=== PATIENT | female | born 1955 | race Caucasian/White ===

== ENCOUNTER 2018-02-11 11:23 | Emergency (ER) | payer OTHER ==
[~2018-02-11] VITALS: Ht 167.6 cm; Wt 90.0 kg
[~2018-02-11 11:23] MED LIST: ASPI-1 PO; MAGN400C PO; METO-395 PO; PER10325T PO; SERT50TA PO; TRIA1CAP6 PO
[2018-02-11 11:35] VITALS: BP 131/72
[2018-02-11 12:12] LABS: BASOPHILS % (AUTO) 0.3 % (0-1); EOSINOPHILS # (AUTO) 0.1 X10'3 (0-0.9); EOSINOPHILS % (AUTO) 1.9 % (0-6); HEMATOCRIT 40.4 % (35.0-45.0); HEMOGLOBIN 13.5 g/dl (12.0-16.0); LYMPHOCYTES # (AUTO) 1.6 X10'3 (1.1-4.8); LYMPHOCYTES % (AUTO) 26.6 % (21-51); MEAN CORPUSCULAR HEMOGLOBIN 29.7 PG (27.0-31.0); MEAN CORPUSCULAR HGB CONC 33.5 % (33.0-36.5); MEAN CORPUSCULAR VOLUME 88.6 FL (78-98); MEAN PLATELET VOLUME 8.7 FL (7.4-10.4); MONOCYTES # (AUTO) 0.4 X10'3 (0-0.9); NEUTROPHILS % (AUTO) 64.2 % (42-75); PLATELET COUNT 236 X10'3 (140-440); RED BLOOD COUNT 4.56 X10'6 (4.20-5.60); RED CELL DISTRIBUTION WIDTH 13.5 % (11.5-14.5); WHITE BLOOD COUNT 6.2 X10'3 (4.5-11.0)
[2018-02-11 12:19] LABS: CLARITY,URINE CLEAR (Clear); COLOR,URINE YELLOW (Yellow); GLUCOSE, URINE NEGATIVE (Neg); KETONES,URINE NEGATIVE (Neg); LEUKOCYTE ESTERASE ,URINE TRACE (Neg); NITRITES, URINE NEGATIVE (Neg); OCCULT BLOOD,URINE NEGATIVE (Neg); PROTEIN,URINE NEGATIVE (Neg); UROBILINOGEN,URINE 0.2 E.U/dL (0.2-1.0)
[2018-02-11 12:22] LABS: PROTHROMBIN TIME 9.9 SECONDS (9.0-12.0)
[2018-02-11 12:25] LABS: ALANINE AMINOTRANSFERASE 24 U/L (12-78); ALBUMIN 3.6 G/DL (3.4-5.0); ALBUMIN/GLOBULIN RATIO 1.1 (1.1-1.5); ALKALINE PHOSPHATASE 51 IU/L (46-116); ANION GAP 7 (8-16); ASPARTATE AMINO TRANSFERASE 20 U/L (10-37); BILIRUBIN,TOTAL 0.5 MG/DL (0.1-1.0); BLOOD UREA NITROGEN 16 MG/DL (7-18); BUN/CREATININE RATIO 16.5 (6.6-38.0); CALCIUM 9.2 MG/DL (8.5-10.1); CHLORIDE 103 MMOL/L (99-107); CREATININE 0.97 MG/DL (0.40-0.90); GLUCOSE 90 MG/DL (70-104); LIPASE 153 U/L (73-393); POTASSIUM 4.5 MMOL/L (3.5-5.1); SODIUM 141 MMOL/L (135-145); TOTAL CARBON DIOXIDE 30.8 MMOL/L (24-32); TOTAL PROTEIN 6.8 G/DL (6.4-8.2); eGFR 58 ML/MIN
[2018-02-11 12:35] LABS: UA COLLECTION TYPE CLN CATCH MIDSTREAM
[2018-02-11 12:37] LABS: BACTERIA,URINE NONE SEEN /HPF (Neg); SQUAMOUS EPITHELIAL CELL,UR FEW /LPF (FEW); WBC,URINE 0-4 /HPF (0-4)
[2018-02-11 12:38] LABS: RBC,URINE 0-2 /HPF (0-2)
[2018-02-11] MEDS ORDERED: iohexol 300mg/ml 100ml inj. ONE (13:30)
[2018-02-11] MEDS ORDERED: ibuprofen 200mg tablet PO ONE (14:15)
[2018-02-11] MEDS ORDERED: ibuprofen tablet 400 MG TABLET PO ONE (14:15)
== END 2018-02-11 14:28 | disposition home or self-care (01) ==
LOC: ER 11:24
DX: R10.9 Unspecified abdominal pain (principal); K57.30 Diverticulosis of large intestine without perforation or abscess without bleeding; N20.0 Calculus of kidney; I10 Essential (primary) hypertension; Z98.890 Other specified postprocedural states; Z72.0 Tobacco use; Z79.82 Long term (current) use of aspirin; Z79.899 Other long term (current) drug therapy
CPT/HCPCS: 36415; 74176; 80053; 81001; 83690; 85025; 85610; 87088; 99284; Q9967

== ENCOUNTER 2018-07-08 13:20 | Emergency (ER) | payer OTHER ==
[~2018-07-08] VITALS: Ht 167.6 cm; Wt 90.7 kg
[2018-07-08 16:16] LABS: BASOPHILS % (AUTO) 0.5 % (0-1); EOSINOPHILS # (AUTO) 0.1 X10'3 (0-0.9); EOSINOPHILS % (AUTO) 1.2 % (0-6); HEMATOCRIT 40.6 % (35.0-45.0); HEMOGLOBIN 13.8 g/dl (12.0-16.0); LYMPHOCYTES # (AUTO) 1.7 X10'3 (1.1-4.8); MEAN CORPUSCULAR HEMOGLOBIN 29.9 PG (27.0-31.0); MEAN CORPUSCULAR HGB CONC 33.9 g/dL (33.0-36.5); MEAN CORPUSCULAR VOLUME 88.2 FL (78-98); MEAN PLATELET VOLUME 8.6 FL (7.4-10.4); MONOCYTES # (AUTO) 0.5 X10'3 (0-0.9); MONOCYTES % (AUTO) 6.7 % (2-12); NEUTROPHILS # (AUTO) 4.5 X10'3 (1.8-7.7); NEUTROPHILS % (AUTO) 66.6 % (42-75); PLATELET COUNT 210 X10'3 (140-440); RED CELL DISTRIBUTION WIDTH 13.7 % (11.5-14.5); WHITE BLOOD COUNT 6.7 X10'3 (4.5-11.0)
[2018-07-08 16:32] LABS: ALANINE AMINOTRANSFERASE 27 U/L (12-78); ALBUMIN 3.7 G/DL (3.4-5.0); ALBUMIN/GLOBULIN RATIO 1.2 (1.1-1.5); ALKALINE PHOSPHATASE 66 IU/L (46-116); ANION GAP 7 (8-16); ASPARTATE AMINO TRANSFERASE 18 U/L (10-37); BILIRUBIN,TOTAL 0.3 MG/DL (0.1-1.0); BLOOD UREA NITROGEN 15 MG/DL (7-18); BUN/CREATININE RATIO 13.6 (6.6-38.0); CHLORIDE 105 MMOL/L (99-107); GLUCOSE 123 MG/DL (70-104); POTASSIUM 4.3 MMOL/L (3.5-5.1); SODIUM 140 MMOL/L (135-145); TOTAL CARBON DIOXIDE 28.2 MMOL/L (24-32); TOTAL PROTEIN 6.8 G/DL (6.4-8.2); eGFR 50 ML/MIN
[2018-07-08 17:17] VITALS: BP 124/51
== END 2018-07-08 17:20 | disposition home or self-care (01) ==
LOC: ER 13:20
DX: H53.8 Other visual disturbances (principal); N28.9 Disorder of kidney and ureter, unspecified; I10 Essential (primary) hypertension; Z98.890 Other specified postprocedural states; Z79.82 Long term (current) use of aspirin; Z79.899 Other long term (current) drug therapy
CPT/HCPCS: 36415; 70450; 80053; 84439; 84443; 85025; 99284

== ENCOUNTER 2019-02-04 08:51 | Inpatient (IN) | payer BC, OTHER ==
[~2019-02-04] VITALS: Ht 167.6 cm; Wt 95.2 kg
--- NOTE | 2019-02-04 09:19 | NUR ---
TELE NEURO HAS BEEN CONSULTED
[2019-02-04 09:34] LABS: BASOPHILS % (AUTO) 0.3 % (0-1); EOSINOPHILS # (AUTO) 0.1 X10'3 (0-0.9); EOSINOPHILS % (AUTO) 1.1 % (0-6); HEMATOCRIT 41.4 % (35.0-45.0); LYMPHOCYTES # (AUTO) 1.5 X10'3 (1.1-4.8); LYMPHOCYTES % (AUTO) 19.9 % (21-51); MEAN CORPUSCULAR HEMOGLOBIN 30.2 PG (27.0-31.0); MEAN CORPUSCULAR HGB CONC 33.8 g/dL (33.0-36.5); MEAN CORPUSCULAR VOLUME 89.3 FL (78-98); MEAN PLATELET VOLUME 8.6 FL (7.4-10.4); MONOCYTES # (AUTO) 0.5 X10'3 (0-0.9); MONOCYTES % (AUTO) 6.6 % (2-12); NEUTROPHILS # (AUTO) 5.5 X10'3 (1.8-7.7); NEUTROPHILS % (AUTO) 72.1 % (42-75); PLATELET COUNT 221 X10'3 (140-440); RED BLOOD COUNT 4.63 X10'6 (4.20-5.60); RED CELL DISTRIBUTION WIDTH 13.6 % (11.5-14.5); WHITE BLOOD COUNT 7.6 X10'3 (4.5-11.0)
[2019-02-04] MEDS ORDERED: aspirin 325mg tablet PO ONE (09:45)
[2019-02-04 09:47] LABS: PARTIAL THROMBOPLASTIN TIME 26 SECONDS (22-32)
[2019-02-04 09:49] LABS: ALANINE AMINOTRANSFERASE 38 U/L (12-78); ALBUMIN/GLOBULIN RATIO 1.2 (1.1-1.5); ALKALINE PHOSPHATASE 64 IU/L (46-116); ANION GAP 7 (8-16); ASPARTATE AMINO TRANSFERASE 23 U/L (10-37); BILIRUBIN,TOTAL 0.5 MG/DL (0.1-1.0); BLOOD UREA NITROGEN 25 MG/DL (7-18); BUN/CREATININE RATIO 23.4 (6.6-38.0); CALCIUM 9.3 MG/DL (8.5-10.1); CHLORIDE 104 MMOL/L (99-107); CREATININE 1.07 MG/DL (0.40-0.90); GLUCOSE 97 MG/DL (70-104); POTASSIUM 4.4 MMOL/L (3.5-5.1); SODIUM 139 MMOL/L (135-145); TOTAL CARBON DIOXIDE 28.3 MMOL/L (24-32); TOTAL PROTEIN 7.4 G/DL (6.4-8.2); eGFR 52 ML/MIN
[2019-02-04 09:52] LABS: TROPONIN I < 0.04 NG/ML (0.0-0.05)
[2019-02-04] MEDS ORDERED: magnesium Cl slow-release 64mg tablet PO PRN (11:45)
[2019-02-04] MEDS ORDERED: acetaminophen 650mg rectal suppository RC PRN (11:45)
[2019-02-04] MEDS ORDERED: acetaminophen 325mg tablet PO PRN ×2 (11:45)
[2019-02-04] MEDS ORDERED: magnesium 2GM in 50ml NS 50 ML IV PRN (11:45)
[2019-02-04] MEDS ORDERED: potassium CL 10mEq/100ml bag 100 ML IV PRN ×2 (11:45)
[2019-02-04] MEDS ORDERED: diphenhydrAMINE 25mg capsule PO PRN (11:45)
[2019-02-04] MEDS ORDERED: potassium Cl 20 mEq SR tablet PO PRN ×2 (11:45)
[2019-02-04] MEDS ORDERED: HYDROcodone/acetaminophen 5mg/325mg tablet PO PRN (11:45)
[2019-02-04] MEDS ORDERED: morphine 2 MG/ML inj. syringe IV PRN ×2 (11:45)
[2019-02-04] MEDS ORDERED: mag hydrox/Alum hydrox/simeth 30ml oral suspension PO PRN (11:45)
[2019-02-04] MEDS ORDERED: magnesium 4gm in 100ml NS 100 ML IV PRN (11:45)
[2019-02-04] MEDS ORDERED: ondansetron/PF 4mg/2ml inj IV PRN (11:45)
[2019-02-04] MEDS ORDERED: magnesium hydroxide 30ml (MOM) UD suspension PO PRN (11:45)
[2019-02-04] MEDS ORDERED: bisacodyl 10mg suppository rectal RC PRN (11:45)
[2019-02-04 12:15] LABS: CHOL/HDL RATIO 3.3 (0.00-4.99); CHOLESTEROL 212 MG/DL (0-200); HDL CHOLESTEROL 65 MG/DL (35-60); LDL CHOLESTEROL 129 MG/DL (50-100); TRIGLYCERIDES 123 MG/DL (20-135)
[2019-02-04] MEDS: normal saline 1000ml 1,000 ML IV SCH ×2 (12:19→14:21)
[2019-02-04 12:28] LABS: HEMOGLOBIN A1C 5.9 % (4.5-6.2)
[2019-02-04] MEDS ORDERED: FLUO20TA28 PO (12:30)
[2019-02-04] MEDS ORDERED: LOVA20TA2 PO (12:30)
--- NOTE | 2019-02-04 13:40 | NUR ---
ASSUMED CARE, PATIENT CAME FROM MRI. RECEIVED REPORT FROM DESIRE WALL. PATIENT RESTING COMFORTABLY, REPORTS 0/10 PAIN. WILL CONTINUE TO MONITOR.
[2019-02-04 13:45] VITALS: BP 118/67
[2019-02-04] MEDS ORDERED: HYDR-4353 PO (14:35)
--- NOTE | 2019-02-04 17:41 | NUR ---
PAGER ID: [phone] MESSAGE: [id number] RE: [phone] [id number] JUST NEED THE MED REC ADDRESSED WHEN YOU HAVE TIME.
[2019-02-04 18:00] VITALS: BP 107/51
--- NOTE | 2019-02-04 18:05 | NUR ---
Problems reprioritized. Patient report given, questions answered & plan of care reviewed with BECKA WALL.
[2019-02-04] MEDS: K and/or MAG REPLACEMENT MC SCH (20:00)
[2019-02-04] MEDS: heparin, porcine 5000 units/ml vial SQ SCH (20:09)
[2019-02-04 20:30] VITALS: BP 101/55
[2019-02-04] MEDS: metoprolol succinate 25mg (24-HOUR) SR. Tablet PO SCH (20:35)
[2019-02-04] MEDS ORDERED: non-formulary drug (Lovastatin* (Mevacor*) 1 TAB) PO SCH (21:00)
[2019-02-04 22:00] VITALS: BP 107/53
[2019-02-05 02:50] VITALS: BP 137/71
[2019-02-05 05:57] LABS: BASOPHILS % (AUTO) 0.4 % (0-1); EOSINOPHILS # (AUTO) 0.1 X10'3 (0-0.9); EOSINOPHILS % (AUTO) 1.8 % (0-6); HEMATOCRIT 38.2 % (35.0-45.0); HEMOGLOBIN 13.1 g/dl (12.0-16.0); LYMPHOCYTES # (AUTO) 1.5 X10'3 (1.1-4.8); LYMPHOCYTES % (AUTO) 34.7 % (21-51); MEAN CORPUSCULAR HEMOGLOBIN 30.5 PG (27.0-31.0); MEAN CORPUSCULAR HGB CONC 34.4 g/dL (33.0-36.5); MEAN CORPUSCULAR VOLUME 88.6 FL (78-98); MEAN PLATELET VOLUME 8.7 FL (7.4-10.4); MONOCYTES # (AUTO) 0.4 X10'3 (0-0.9); MONOCYTES % (AUTO) 9.2 % (2-12); NEUTROPHILS # (AUTO) 2.4 X10'3 (1.8-7.7); NEUTROPHILS % (AUTO) 53.9 % (42-75); PLATELET COUNT 185 X10'3 (140-440); RED BLOOD COUNT 4.31 X10'6 (4.20-5.60); RED CELL DISTRIBUTION WIDTH 13.9 % (11.5-14.5); WHITE BLOOD COUNT 4.4 X10'3 (4.5-11.0)
[2019-02-05 06:00] VITALS: BP 136/61
[2019-02-05 06:27] LABS: ALANINE AMINOTRANSFERASE 37 U/L (12-78); ALBUMIN 3.3 G/DL (3.4-5.0); ALBUMIN/GLOBULIN RATIO 1.1 (1.1-1.5); ALKALINE PHOSPHATASE 50 IU/L (46-116); ANION GAP 4 (8-16); ASPARTATE AMINO TRANSFERASE 25 U/L (10-37); BILIRUBIN,TOTAL 0.4 MG/DL (0.1-1.0); BLOOD UREA NITROGEN 19 MG/DL (7-18); BUN/CREATININE RATIO 20.7 (6.6-38.0); CALCIUM 8.2 MG/DL (8.5-10.1); CHLORIDE 106 MMOL/L (99-107); CHOL/HDL RATIO 3.5 (0.00-4.99); CHOLESTEROL 182 MG/DL (0-200); CREATININE 0.92 MG/DL (0.40-0.90); GLUCOSE 99 MG/DL (70-104); HDL CHOLESTEROL 52 MG/DL (35-60); LDL CHOLESTEROL 114 MG/DL (50-100); MAGNESIUM 1.8 MG/DL (1.5-2.4); PHOSPHORUS 3.3 MG/DL (2.3-4.5); POTASSIUM 4.1 MMOL/L (3.5-5.1); SODIUM 141 MMOL/L (135-145); TOTAL CARBON DIOXIDE 30.7 MMOL/L (24-32); TOTAL PROTEIN 6.4 G/DL (6.4-8.2); TRIGLYCERIDES 155 MG/DL (20-135); eGFR 61 ML/MIN
--- NOTE | 2019-02-05 06:32 | NUR ---
Patient in room ORTHO 4015A. I have received report from BECKA WALL and had the opportunity to ask questions and assume patient care.
[2019-02-05] MEDS: K and/or MAG REPLACEMENT MC SCH ×2 (07:09→20:00)
[2019-02-05] MEDS ORDERED: atorvastatin 10mg tablet PO SCH (08:00)
[2019-02-05] MEDS: aspirin 81mg tablet.DR PO SCH (08:20)
[2019-02-05] MEDS: triamterene/HCTZ 37.5/25mg tablet PO SCH (08:21)
[2019-02-05] MEDS: FLUoxetine 20mg capsule PO SCH (08:21)
[2019-02-05] MEDS: atorvastatin 20mg tablet PO SCH (08:21)
[2019-02-05] MEDS: heparin, porcine 5000 units/ml vial SQ SCH ×2 (08:22→21:27)
[2019-02-05] MEDS: normal saline 1000ml 1,000 ML IV SCH ×2 (08:32→21:33)
[2019-02-05 10:00] VITALS: BP 116/62
[2019-02-05] MEDS: LORazepam 1 MG tablet PO PRN (14:27)
[2019-02-05] MEDS ORDERED: iohexol 350MG/ML 100ml bottle IV ONE (16:50)
[2019-02-05 18:00] VITALS: BP 95/54
[2019-02-05] MEDS: metoprolol succinate 25mg (24-HOUR) SR. Tablet PO SCH (21:00)
[2019-02-05 22:00] VITALS: BP_SYST 114; BP_SYST 120; BP_DIAS 66; BP_DIAS 69
[2019-02-05] MEDS ORDERED: nitroGLYCERIN 0.4mg SUBLingual tab SL PRN (22:40)
[2019-02-05] MEDS ORDERED: metoprolol tartrate 1mg/ml inj IV PRN (22:40)
[2019-02-05] MEDS ORDERED: regadenoson 0.4mg/5ml syringe IV ONE (22:40)
[2019-02-05] MEDS ORDERED: aminophylline 250mg/10ml inj. IV PRN (22:40)
[2019-02-06] VITALS (25 sets, daily range): BP systolic 112–148; BP diastolic 51–87
[2019-02-06] MEDS ORDERED: metoprolol tartrate 1mg/ml inj IV PRN (06:00)
[2019-02-06] MEDS ORDERED: nitroGLYCERIN 0.4mg SUBLingual tab SL PRN (06:00)
[2019-02-06] MEDS ORDERED: regadenoson 0.4mg/5ml syringe IV PRN (06:00)
[2019-02-06] MEDS ORDERED: aminophylline 250mg/10ml inj. IV PRN (06:00)
--- NOTE | 2019-02-06 06:14 | NUR ---
reported to days. noted pt took shower. awaiting clay scan this am and surgery if clay is negative.
--- NOTE | 2019-02-06 06:25 | NUR ---
Patient in room ORTHO 4015. I have received report from Burak and had the opportunity to ask questions and assume patient care.
[2019-02-06 06:41] LABS: BASOPHILS % (AUTO) 0.4 % (0-1); EOSINOPHILS # (AUTO) 0.1 X10'3 (0-0.9); EOSINOPHILS % (AUTO) 1.6 % (0-6); HEMATOCRIT 36.7 % (35.0-45.0); HEMOGLOBIN 12.6 g/dl (12.0-16.0); LYMPHOCYTES # (AUTO) 1.2 X10'3 (1.1-4.8); LYMPHOCYTES % (AUTO) 29.9 % (21-51); MEAN CORPUSCULAR HEMOGLOBIN 30.5 PG (27.0-31.0); MEAN CORPUSCULAR HGB CONC 34.4 g/dL (33.0-36.5); MEAN CORPUSCULAR VOLUME 88.7 FL (78-98); MEAN PLATELET VOLUME 8.8 FL (7.4-10.4); MONOCYTES # (AUTO) 0.3 X10'3 (0-0.9); MONOCYTES % (AUTO) 8.1 % (2-12); NEUTROPHILS # (AUTO) 2.4 X10'3 (1.8-7.7); PLATELET COUNT 180 X10'3 (140-440); RED BLOOD COUNT 4.14 X10'6 (4.20-5.60); RED CELL DISTRIBUTION WIDTH 13.6 % (11.5-14.5)
[2019-02-06 06:53] LABS: ALANINE AMINOTRANSFERASE 35 U/L (12-78); ALBUMIN 3.5 G/DL (3.4-5.0); ALBUMIN/GLOBULIN RATIO 1.2 (1.1-1.5); ALKALINE PHOSPHATASE 48 IU/L (46-116); ANION GAP 6 (8-16); ASPARTATE AMINO TRANSFERASE 20 U/L (10-37); BILIRUBIN,TOTAL 0.5 MG/DL (0.1-1.0); BLOOD UREA NITROGEN 15 MG/DL (7-18); BUN/CREATININE RATIO 16.3 (6.6-38.0); CALCIUM 8.5 MG/DL (8.5-10.1); CHLORIDE 106 MMOL/L (99-107); CREATININE 0.92 MG/DL (0.40-0.90); GLUCOSE 107 MG/DL (70-104); MAGNESIUM 1.9 MG/DL (1.5-2.4); PHOSPHORUS 3.5 MG/DL (2.3-4.5); POTASSIUM 3.7 MMOL/L (3.5-5.1); SODIUM 141 MMOL/L (135-145); TOTAL CARBON DIOXIDE 29.4 MMOL/L (24-32); TOTAL PROTEIN 6.4 G/DL (6.4-8.2); eGFR 61 ML/MIN
[2019-02-06] MEDS: atorvastatin 20mg tablet PO SCH (08:00)
[2019-02-06] MEDS: K and/or MAG REPLACEMENT MC SCH ×2 (08:00→20:00)
[2019-02-06] MEDS: heparin, porcine 5000 units/ml vial SQ SCH (08:00)
[2019-02-06] MEDS: aspirin 81mg tablet.DR PO SCH (08:00)
[2019-02-06] MEDS: triamterene/HCTZ 37.5/25mg tablet PO SCH (08:00)
--- NOTE | 2019-02-06 09:18 | NUR ---
Re: Gail Khan MD okay to go home today or tomorrow with daughter, will need home health.
--- NOTE | 2019-02-06 10:55 | NUR ---
Pt arrived back on the floor after procedure
[2019-02-06] MEDS: FLUoxetine 20mg capsule PO SCH (11:10)
[2019-02-06] MEDS: normal saline 1000ml 1,000 ML IV SCH ×3 (11:11→23:44)
[2019-02-06] MEDS: LORazepam 1 MG tablet PO PRN (12:33)
[2019-02-06] MEDS ORDERED: heparin 10,000 units/1 ML INJ ONE (13:17)
[2019-02-06] MEDS ORDERED: ceFAZolin 1000mg inj ONE ×3 (13:17→16:24)
[2019-02-06] MEDS ORDERED: LIDOcaine 1% 30ml preserv. free vial ONE (13:17)
[2019-02-06] MEDS ORDERED: nitroPRUSSIDE in NS 100 ML IV ONE ×2 (13:25→14:02)
[2019-02-06] MEDS ORDERED: fentaNYL/PF 50MCG/1 ML 2ML syringe ONE (15:05)
[2019-02-06] MEDS ORDERED: nitroPRUSSIDE sod inj. 50 MG in dextrose 5%-water 250 ML IV SCH (15:05)
[2019-02-06] MEDS ORDERED: etomidate 2mg/ml inj. ONE (15:06)
[2019-02-06] MEDS ORDERED: rocuronium 10mg/ml inj IV ONE ×2 (15:07→15:24)
[2019-02-06] MEDS ORDERED: dexamethasone sod phosphate 4mg/ml inj. ONE (15:08)
[2019-02-06] MEDS ORDERED: ondansetron/PF 4mg/2ml inj ONE (15:08)
[2019-02-06] MEDS ORDERED: nitroPRUSSIDE in NS 100 ML IV SCH (15:15)
[2019-02-06] MEDS ORDERED: morphine 4 MG/ML inj SYRINge IV PRN ×2 (15:15)
[2019-02-06] MEDS ORDERED: phenylephrine inj 50 MG in normal saline 250ml IV soln 245 ML IV SCH (15:15)
[2019-02-06] MEDS ORDERED: labetalol 20mg/4ml (5mg/ml) syringe IV PRN (15:15)
[2019-02-06] MEDS ORDERED: ringers solution, lacted 1,000 ML IV SCH (15:15)
[2019-02-06] MEDS ORDERED: hydrALAZINE 20mg/ml inj. IV PRN (15:15)
[2019-02-06] MEDS ORDERED: fentaNYL/PF 50MCG/1 ML 2ML syringe IV PRN ×2 (15:15)
[2019-02-06] MEDS ORDERED: ondansetron/PF 4mg/2ml inj IV PRN ×2 (15:15→18:40)
[2019-02-06] MEDS ORDERED: sevoflurane 250ml liquid IH ONE (15:24)
[2019-02-06] MEDS ORDERED: sugammadex 200mg/2ml injection IV ONE (15:24)
[2019-02-06] MEDS ORDERED: desflurane 240ml liquid inh. IH ONE (15:24)
[2019-02-06] MEDS ORDERED: ePHEDrine 50MG/ML INJ. ONE (15:53)
[2019-02-06] MEDS ORDERED: morphine 10mg/ml inj. ONE (15:59)
[2019-02-06] MEDS: ceFAZolin 1GM/D5W- ADD-VANTAGE 50 ML IV SCH (16:00)
[2019-02-06] MEDS ORDERED: labetalol 20mg/4ml (5mg/ml) syringe IV ONE ×2 (16:02→17:28)
[2019-02-06] MEDS ORDERED: heparin 1,000unit/ml 10ml vial 10 ML ONE (16:02)
--- NOTE | 2019-02-06 16:25 | NUR ---
Neuro check and vitals not done at 16:00, pt still in procedure
--- NOTE | 2019-02-06 17:16 | NUR ---
Called to give report, pt still in procedure, no POWER SHOVEL MECHANIC assigned to receive pt yet
--- NOTE | 2019-02-06 17:27 | NUR ---
Call from ICU, gave report to DUKE Monte.
[2019-02-06] MEDS ORDERED: protamine sulfate 10mg/ml inj. ONE (17:38)
--- NOTE | 2019-02-06 17:59 | NUR ---
Received from OR via ICU BED , accompanied by Anesthesiologist LEONARD and report given by Anesthesiolgist. PATIENT WITH 20G PIV IN RIGHT AC AND WRIST AREA. DENIES PAIN. PUSH PULLS AND SMILE ALL WNL, TONGUE MIDLINE. VSS. LEFT NECK DRESSING IS CDI WITH KATIE MAINTAINING SUCTION. Addendum: 02/06/19 at 1814 by Abundio Bob RN, RN Amended: Links added.
--- NOTE | 2019-02-06 18:39 | NUR ---
ALL CRITERIA FOR TRANSFER TO THE FLOOR HAS BEEN ACHIEVED. VSS. BED LOW, CALL LIGHT AND VS. SET IN PLACE. RN PRESENT TO ACCEPT CARE. PATIENT RESTING COMFORTABLY IN BED. BELONGINGS SENT WITH PATIENT. DRESSINGS CDI. VSS. DRAINAGE TO ANTEROR LEFT NECK IS CDI. KATIE BULB MAINTAINING SUCTION. DUKE OLIVA PRESENT TO ACCEPT CARE AND ASSIST IN SET UP. SCDS ON, NEUROLOGICALLY STILL INTACT. CARE TURNED OVER. Addendum: 02/06/19 at 1853 by Abundio Yu - DUKE WALL Amended: Links added.
[2019-02-06] MEDS ORDERED: HYDROcodone/acetaminophen 10/325mg tab PO PRN (18:40)
--- NOTE | 2019-02-06 18:45 | NUR ---
Patient in room ICU 2044. I have received report from Abundio WALL and had the opportunity to ask questions and assume patient care.
[2019-02-06] MEDS: metoprolol succinate 25mg (24-HOUR) SR. Tablet PO SCH (21:00)
[2019-02-06] MEDS: HYDROcodone/acetaminophen 10/325mg tab PO PRN (21:11)
[2019-02-06] MEDS: ceFAZolin/D5W- 1GM premix 50 ML IV SCH (23:43)
[2019-02-07] VITALS (24 sets, daily range): BP systolic 96–150; BP diastolic 44–86
[2019-02-07] MEDS: ceFAZolin 1GM/D5W- ADD-VANTAGE 50 ML IV SCH
[2019-02-07] MEDS: HYDROcodone/acetaminophen 10/325mg tab PO PRN ×5 (02:14→21:50)
[2019-02-07 03:28] LABS: BASOPHILS % (AUTO) 0 % (0-1); EOSINOPHILS % (AUTO) 0 % (0-6); HEMATOCRIT 36.5 % (35.0-45.0); HEMOGLOBIN 12.5 g/dl (12.0-16.0); LYMPHOCYTES # (AUTO) 0.6 X10'3 (1.1-4.8); LYMPHOCYTES % (AUTO) 6.1 % (21-51); MEAN CORPUSCULAR HEMOGLOBIN 30.6 PG (27.0-31.0); MEAN CORPUSCULAR HGB CONC 34.4 g/dL (33.0-36.5); MEAN PLATELET VOLUME 8.3 FL (7.4-10.4); MONOCYTES # (AUTO) 0.4 X10'3 (0-0.9); MONOCYTES % (AUTO) 3.9 % (2-12); NEUTROPHILS # (AUTO) 8.7 X10'3 (1.8-7.7); PLATELET COUNT 230 X10'3 (140-440); RED CELL DISTRIBUTION WIDTH 13.7 % (11.5-14.5); WHITE BLOOD COUNT 9.7 X10'3 (4.5-11.0)
[2019-02-07 03:37] LABS: ALANINE AMINOTRANSFERASE 32 U/L (12-78); ALBUMIN 3.5 G/DL (3.4-5.0); ALBUMIN/GLOBULIN RATIO 1.2 (1.1-1.5); ALKALINE PHOSPHATASE 45 IU/L (46-116); ANION GAP 6 (8-16); ASPARTATE AMINO TRANSFERASE 21 U/L (10-37); BILIRUBIN,TOTAL 0.3 MG/DL (0.1-1.0); BLOOD UREA NITROGEN 13 MG/DL (7-18); BUN/CREATININE RATIO 14.9 (6.6-38.0); CALCIUM 8.1 MG/DL (8.5-10.1); CHLORIDE 107 MMOL/L (99-107); CREATININE 0.87 MG/DL (0.40-0.90); GLUCOSE 146 MG/DL (70-104); MAGNESIUM 1.8 MG/DL (1.5-2.4); PHOSPHORUS 3.6 MG/DL (2.3-4.5); POTASSIUM 4.1 MMOL/L (3.5-5.1); SODIUM 141 MMOL/L (135-145); TOTAL CARBON DIOXIDE 27.8 MMOL/L (24-32); TOTAL PROTEIN 6.4 G/DL (6.4-8.2); eGFR 66 ML/MIN
[2019-02-07] MEDS: normal saline 1000ml 1,000 ML IV SCH ×3 (04:09→20:40)
--- NOTE | 2019-02-07 06:32 | NUR ---
Problems reprioritized. Patient report given, questions answered & plan of care reviewed with Meir WALL.
--- NOTE | 2019-02-07 06:33 | NUR ---
Patient in room ICU 2044. I have received report from Swati WALL and had the opportunity to ask questions and assume patient care.
[2019-02-07] MEDS: FLUoxetine 20mg capsule PO SCH (07:59)
[2019-02-07] MEDS: atorvastatin 20mg tablet PO SCH (07:59)
[2019-02-07] MEDS: K and/or MAG REPLACEMENT MC SCH ×2 (08:00→20:00)
[2019-02-07] MEDS: triamterene/HCTZ 37.5/25mg tablet PO SCH (08:00)
[2019-02-07] MEDS: ceFAZolin/D5W- 1GM premix 50 ML IV SCH ×2 (08:02→15:51)
[2019-02-07] MEDS: aspirin 81mg tablet.DR PO SCH (09:07)
--- NOTE | 2019-02-07 12:27 | NUR ---
per Dr. Jameson chamberlain for pt to ambulate and to wean saundra to off.
[2019-02-07] MEDS ORDERED: normal saline 500ml IV soln 1,000 ML IV ONE (17:05)
--- NOTE | 2019-02-07 17:07 | NUR ---
called Dr. Barba about pt's SBP in the 90s. He directed me to Dr. Lopez. Notified Dr. Lopez and received orders for 500cc bolus NS. will continue to monitor.
--- NOTE | 2019-02-07 18:23 | NUR ---
Problems reprioritized. Patient report given, questions answered & plan of care reviewed with Lida WALL.
--- NOTE | 2019-02-07 18:25 | NUR ---
Patient in room ICU 2044. I have received report from DUKE Worley and had the opportunity to ask questions and assume patient care.
--- NOTE | 2019-02-07 18:40 | NUR ---
Patient ambulated approx 50 ft with front wheeled walker and standby assistance.
[2019-02-07] MEDS ORDERED: temazepam 15mg capsule PO PRN (19:05)
[2019-02-08] VITALS (13 sets, daily range): BP systolic 92–122; BP diastolic 55–85
[2019-02-08] MEDS: HYDROcodone/acetaminophen 10/325mg tab PO PRN ×3 (02:14→10:29)
[2019-02-08] MEDS: LORazepam 1 MG tablet PO PRN (03:17)
[2019-02-08 05:21] LABS: BASOPHILS % (AUTO) 0.2 % (0-1); EOSINOPHILS % (AUTO) 0.8 % (0-6); HEMATOCRIT 30.9 % (35.0-45.0); HEMOGLOBIN 10.5 g/dl (12.0-16.0); LYMPHOCYTES # (AUTO) 1.4 X10'3 (1.1-4.8); LYMPHOCYTES % (AUTO) 25.5 % (21-51); MEAN CORPUSCULAR HEMOGLOBIN 30.8 PG (27.0-31.0); MEAN CORPUSCULAR VOLUME 90.6 FL (78-98); MEAN PLATELET VOLUME 8.7 FL (7.4-10.4); MONOCYTES # (AUTO) 0.5 X10'3 (0-0.9); MONOCYTES % (AUTO) 8.4 % (2-12); NEUTROPHILS # (AUTO) 3.5 X10'3 (1.8-7.7); NEUTROPHILS % (AUTO) 65.1 % (42-75); PLATELET COUNT 157 X10'3 (140-440); RED BLOOD COUNT 3.41 X10'6 (4.20-5.60); RED CELL DISTRIBUTION WIDTH 13.7 % (11.5-14.5); WHITE BLOOD COUNT 5.4 X10'3 (4.5-11.0)
--- NOTE | 2019-02-08 06:40 | NUR ---
Problems reprioritized. Patient report given, questions answered & plan of care reviewed with DUKE Covington.
[2019-02-08 06:44] LABS: ALANINE AMINOTRANSFERASE 26 U/L (12-78); ALBUMIN 3.1 G/DL (3.4-5.0); ALBUMIN/GLOBULIN RATIO 1.2 (1.1-1.5); ALKALINE PHOSPHATASE 43 IU/L (46-116); ANION GAP 4 (8-16); ASPARTATE AMINO TRANSFERASE 21 U/L (10-37); BILIRUBIN,TOTAL 0.4 MG/DL (0.1-1.0); BLOOD UREA NITROGEN 10 MG/DL (7-18); BUN/CREATININE RATIO 10.6 (6.6-38.0); CALCIUM 7.7 MG/DL (8.5-10.1); CHLORIDE 107 MMOL/L (99-107); CREATININE 0.94 MG/DL (0.40-0.90); GLUCOSE 105 MG/DL (70-104); MAGNESIUM 1.7 MG/DL (1.5-2.4); PHOSPHORUS 2.9 MG/DL (2.3-4.5); POTASSIUM 3.7 MMOL/L (3.5-5.1); SODIUM 141 MMOL/L (135-145); TOTAL CARBON DIOXIDE 29.9 MMOL/L (24-32); TOTAL PROTEIN 5.7 G/DL (6.4-8.2); eGFR 60 ML/MIN
[2019-02-08] MEDS: normal saline 1000ml 1,000 ML IV SCH (06:44)
--- NOTE | 2019-02-08 06:57 | NUR ---
Patient in room ICU 2044. I have received report from DUKE LEWIS and had the opportunity to ask questions and assume patient care.
[2019-02-08] MEDS: atorvastatin 20mg tablet PO SCH (07:31)
[2019-02-08] MEDS: FLUoxetine 20mg capsule PO SCH (07:31)
[2019-02-08] MEDS: aspirin 81mg tablet.DR PO SCH (07:31)
[2019-02-08] MEDS: K and/or MAG REPLACEMENT MC SCH (07:33)
[2019-02-08] MEDS ORDERED: HYDR-4353 PO (09:32)
--- NOTE | 2019-02-08 12:50 | NUR ---
PT DISCHARGED IN STABLE CONDITION. DISCHARGE INSTRUCTIONS GIVEN TO PT AND . ALL BELONGINGS SENT HOME WITH PT. PIV'S DC'D, CANULAS INTACT. PT TAKEN TO PRIVATE VEHICLE IN WHEELCHAIR BY MYSELF. [facility] GIVEN TO PT.
== END 2019-02-08 13:39 | disposition home or self-care (01) | DRG 39 ==
LOC: ER 08:52 → ED HOLD 11:44 → ORTHO 4S 13:35 → ICU 2S 02-06 15:00
PROVIDERS: ADMIT Family Medicine; ATTEND Surgery
PROC: BW291ZZ Computerized Tomography (CT Scan) of Head and Neck using Low Osmolar Contrast (ICD-10-PCS; 2019-02-05)
PROC: 03UL0KZ Supplement Left Internal Carotid Artery with Nonautologous Tissue Substitute, Open Approach (ICD-10-PCS; 2019-02-06)
PROC: 4A00X4Z Measurement of Central Nervous Electrical Activity, External Approach (ICD-10-PCS; 2019-02-06)
PROC: 4A02XM4 Measurement of Cardiac Total Activity, External Approach (ICD-10-PCS; 2019-02-06)
PROC: 3E033HZ Introduction of Radioactive Substance into Peripheral Vein, Percutaneous Approach (ICD-10-PCS; 2019-02-06)
PROC: 03CL0ZZ Extirpation of Matter from Left Internal Carotid Artery, Open Approach (ICD-10-PCS; principal; 2019-02-06 15:24)
DX: I65.22 Occlusion and stenosis of left carotid artery (principal); E78.1 Pure hyperglyceridemia; E78.5 Hyperlipidemia, unspecified; E86.0 Dehydration; F32.9 Major depressive disorder, single episode, unspecified; I10 Essential (primary) hypertension; N19 Unspecified kidney failure; Z96.651 Presence of right artificial knee joint; Z71.6 Tobacco abuse counseling; Z86.73 Personal history of transient ischemic attack (TIA), and cerebral infarction without residual deficits; Z87.891 Personal history of nicotine dependence; Z83.6 Family history of other diseases of the respiratory system
CPT/HCPCS: 36415; 70450; 70498; 70544; 70551; 71045; 78452; 80053; 80061; 82948; 83036; 83735; 84100; 84484; 85025; 85610; 85651; 85730; 87081; 93005; 93017; 93306; 93880; 95813; 95816; 97116; 97161; 97530; 99285; A4618; A6258; A7000; A9500; C1768; C1887; C9399; G0378; J0280; J0690; J1100; J1644; J2001; J2270; J2370; J2405; J2720; J2785; J3010; J3490; J7030; J7040; J7050; J7060; J7120; Q9967

== ENCOUNTER 2019-08-05 13:50 | Emergency (ER) | payer BC, OTHER ==
[~2019-08-05] VITALS: Ht 167.6 cm; Wt 99.0 kg
[~2019-08-05 13:50] MED LIST changes: -ASPI-1 PO; +FLUO20TA28 PO; +HYDR-4353 PO; +LOVA20TA2 PO; -MAGN400C PO; -PER10325T PO; -SERT50TA PO
[2019-08-05 16:06] LABS: BASOPHILS % (AUTO) 0.3 % (0-1); EOSINOPHILS # (AUTO) 0.1 X10'3 (0-0.9); EOSINOPHILS % (AUTO) 0.7 % (0-6); HEMATOCRIT 40.8 % (35.0-45.0); HEMOGLOBIN 13.7 g/dl (12.0-16.0); LYMPHOCYTES # (AUTO) 1.3 X10'3 (1.1-4.8); LYMPHOCYTES % (AUTO) 14.1 % (21-51); MEAN CORPUSCULAR HEMOGLOBIN 29.6 PG (27.0-31.0); MEAN CORPUSCULAR HGB CONC 33.5 g/dL (33.0-36.5); MEAN CORPUSCULAR VOLUME 88.2 FL (78-98); MEAN PLATELET VOLUME 8.7 FL (7.4-10.4); MONOCYTES # (AUTO) 0.6 X10'3 (0-0.9); MONOCYTES % (AUTO) 6.3 % (2-12); NEUTROPHILS % (AUTO) 78.6 % (42-75); PLATELET COUNT 254 X10'3 (140-440); RED BLOOD COUNT 4.63 X10'6 (4.20-5.60); RED CELL DISTRIBUTION WIDTH 13.8 % (11.5-14.5); WHITE BLOOD COUNT 8.9 X10'3 (4.5-11.0)
[2019-08-05 16:19] LABS: ALANINE AMINOTRANSFERASE 39 U/L (12-78); ALBUMIN 3.7 G/DL (3.4-5.0); ALBUMIN/GLOBULIN RATIO 1.1 (1.1-1.5); ALKALINE PHOSPHATASE 73 IU/L (46-116); ANION GAP 6 (8-16); ASPARTATE AMINO TRANSFERASE 25 U/L (10-37); BILIRUBIN,TOTAL 0.3 MG/DL (0.1-1.0); BLOOD UREA NITROGEN 17 MG/DL (7-18); BUN/CREATININE RATIO 12.4 (6.6-38.0); CALCIUM 8.9 MG/DL (8.5-10.1); CHLORIDE 103 MMOL/L (99-107); CREATINE KINASE 55 U/L (26-192); CREATININE 1.37 MG/DL (0.40-0.90); GLUCOSE 188 MG/DL (70-104); SODIUM 137 MMOL/L (135-145); TOTAL CARBON DIOXIDE 28.1 MMOL/L (24-32); eGFR 39 ML/MIN
[2019-08-05 16:31] VITALS: BP 124/69
== END 2019-08-05 16:32 | disposition home or self-care (01) ==
LOC: ER 13:51
DX: R55 Syncope and collapse (principal); E86.0 Dehydration; R42 Dizziness and giddiness; M79.644 Pain in right finger(s); I10 Essential (primary) hypertension; F32.9 Major depressive disorder, single episode, unspecified; Z86.73 Personal history of transient ischemic attack (TIA), and cerebral infarction without residual deficits; Z98.890 Other specified postprocedural states; Z79.899 Other long term (current) drug therapy
CPT/HCPCS: 36415; 80053; 82550; 85025; 93005; 99284